=== PATIENT | female | born 1955 | race Native Hawaiian/Other Pacific Islander ===

== ENCOUNTER 2019-02-08 08:01 | Outpatient (CLI) | payer OTHER ==
[2019-02-08 09:01] LABS: PLATELET COUNT 592 K/uL (152-353)
== END 2019-02-08 19:06 | disposition home or self-care (01) ==
LOC: LABW 08:01
PROVIDERS: Nurse Practitioner Family
DX: E11.9 Type 2 diabetes mellitus without complications (principal); I10 Essential (primary) hypertension; R06.09 Other forms of dyspnea; E78.49 Other hyperlipidemia
CPT/HCPCS: 36415; 80053; 80061; 81000; 83036; 83880; 84550; 85027

== ENCOUNTER 2019-04-26 07:41 | Outpatient (CLI) | payer OTHER ==
[2019-04-26 08:22] LABS: PLATELET COUNT 427 K/uL (152-353)
[2019-04-26 09:11] LABS: POTASSIUM 4.8 mmol/L (3.6-5.2)
== END 2019-04-26 22:14 | disposition home or self-care (01) ==
LOC: LABW 07:41 → US 09:00 → LABW 22:14
PROVIDERS: Internal Medicine
DX: N18.4 Chronic kidney disease, stage 4 (severe) (principal); E11.9 Type 2 diabetes mellitus without complications; N25.81 Secondary hyperparathyroidism of renal origin; D64.89 Other specified anemias; E53.8 Deficiency of other specified B group vitamins; R80.1 Persistent proteinuria, unspecified
CPT/HCPCS: 36415; 80053; 80061; 81000; 82043; 82306; 82330; 82570; 82607; 82728; 82746; 82784; 83036; 83540; 83550; 83735; 83970; 84100; 84155; 84165; 84166; 85027; 85651; 86038

== ENCOUNTER 2019-04-30 09:21 | Emergency (ER) | payer OTHER ==
[~2019-04-30] VITALS: Ht 165.1 cm; Wt 105.2 kg
[2019-04-30 10:35] VITALS: BP 186/73; TEMP 97
== END 2019-04-30 10:33 | disposition home or self-care (01) ==
LOC: ED 09:21
DX: J32.0 Chronic maxillary sinusitis (principal); J32.1 Chronic frontal sinusitis
CPT/HCPCS: 99283

== ENCOUNTER 2019-06-15 18:45 | Emergency (ER) | payer OTHER ==
[~2019-06-15] VITALS: Ht 165.1 cm; Wt 101.2 kg
[2019-06-15 18:45] VITALS: TEMP 97.8
[2019-06-15 19:55] VITALS: BP 151/71
== END 2019-06-15 19:55 | disposition home or self-care (01) ==
LOC: ED 18:45
DX: S80.01XA Contusion of right knee, initial encounter (principal); S83.8X1A Sprain of other specified parts of right knee, initial encounter; W18.39XA Other fall on same level, initial encounter; Y92.89 Other specified places as the place of occurrence of the external cause
CPT/HCPCS: 99283

== ENCOUNTER 2019-06-30 07:49 | Outpatient (CLI) | payer OTHER ==
[2019-06-30 08:36] LABS: POTASSIUM 5.4 mmol/L (3.6-5.2)
[2019-06-30 10:45] LABS: PLATELET COUNT 384 K/uL (152-353)
== END 2019-06-30 22:01 | disposition home or self-care (01) ==
LOC: LABW 07:49
PROVIDERS: Internal Medicine
DX: N18.4 Chronic kidney disease, stage 4 (severe) (principal)
CPT/HCPCS: 36415; 80053; 85027

== ENCOUNTER 2020-08-06 11:58 | Outpatient (CLI) | payer OTHER | END 2020-08-06 19:06 | disposition home or self-care (01) | LOC: RAD 11:58 | DX: M79.642 Pain in left hand (principal) ==

== ENCOUNTER 2022-02-18 11:07 | Outpatient (CLI) | payer OTHER | END 2022-02-18 19:13 | disposition home or self-care (01) | LOC: RAD 11:07 | PROVIDERS: ATTEND Nurse Practitioner | DX: R07.89 Other chest pain (principal); R07.81 Pleurodynia ==

== ENCOUNTER 2022-07-01 10:07 | Outpatient (CLI) | payer OTHER | END 2022-07-01 19:10 | disposition home or self-care (01) | LOC: CT 10:07 | PROVIDERS: ATTEND Physician Assistant | DX: S42.465A Nondisplaced fracture of medial condyle of left humerus, initial encounter for closed fracture (principal); X58.XXXA Exposure to other specified factors, initial encounter; Y93.89 Activity, other specified; Y92.89 Other specified places as the place of occurrence of the external cause ==

== ENCOUNTER 2022-08-07 10:54 | Outpatient (CLI) | payer OTHER | END 2022-08-07 20:32 | disposition home or self-care (01) | LOC: RAD 10:54 | PROVIDERS: ATTEND Physician Assistant | DX: M25.522 Pain in left elbow (principal) ==

== ENCOUNTER 2022-08-12 09:33 | Outpatient (CLI) | payer OTHER | END 2022-08-12 23:58 | disposition home or self-care (01) | LOC: RAD 09:33 | PROVIDERS: ATTEND Physician Assistant | DX: M25.532 Pain in left wrist (principal) ==

== ENCOUNTER 2022-12-03 11:49 | Outpatient (CLI) | payer OTHER | END 2022-12-03 17:00 | disposition home or self-care (01) | LOC: RAD 11:49 | PROVIDERS: ATTEND Internal Medicine | DX: M79.671 Pain in right foot (principal); M79.674 Pain in right toe(s) ==

== ENCOUNTER 2023-05-24 11:29 | Outpatient (CLI) | payer OTHER | END 2023-05-24 23:16 | disposition home or self-care (01) | LOC: RAD 11:29 | PROVIDERS: ATTEND Internal Medicine | DX: R07.81 Pleurodynia (principal); M54.59 Other low back pain; W19.XXXA Unspecified fall, initial encounter ==